=== PATIENT | male | born 1990 | race African-American/Black ===

== ENCOUNTER 2018-05-11 19:42 | Inpatient (IN) ==
[2018-05-11] MEDS ORDERED: Morphine Sulfate Inj 2 MG/ML Vial ONE ×2 (19:48→19:56)
[2018-05-11] MEDS ORDERED: Diphtheria/Tetanus/Pertussis Vaccine Inj 0.5 ML Syringe IM ONE (19:52)
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
[2018-05-11 20:14] LABS: Baso # (Auto) 0.1 th/mm3 (0.0-0.2); Baso % (Auto) 0.7 % (0.0-2.0); Eos # (Auto) 0.1 th/mm3 (0.0-0.4); Eos % (Auto) 0.9 % (0.0-4.0); Hematocrit 43.8 % (39.0-51.0); Hemoglobin 14.4 gm/dL (13.0-17.0); Lymph # (Auto) 4.1 th/mm3 (1.0-4.8); Lymph % (Auto) 50.6 % (9.0-44.0); Mean Corpuscular HGB Conc 32.9 % (32.0-36.0); Mean Corpuscular Hemoglobin 29.8 pg (27.0-34.0); Mean Corpuscular Volume 90.6 fL (80.0-100.0); Mean Platelet Volume 8.9 fL (7.0-11.0); Mono # (Auto) 0.5 th/mm3 (0.0-0.9); Mono % (Auto) 5.8 % (0.0-8.0); Neut # (Auto) 3.4 th/mm3 (1.8-7.7); Platelet Count 263 th/mm3 (150-450); Red Blood Count 4.83 mil/mm3 (4.50-5.90); Red Cell Distribution Width 13.4 % (11.6-17.2); White Blood Count 8.2 th/mm3 (4.0-11.0)
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
[2018-05-11] MEDS ORDERED: fentaNYL Citrate Inj 100 MCG/2 ML Ampul IV.PUSH ONE (20:37)
[2018-05-11] MEDS ORDERED: Etomidate Inj 40 MG/20 ML Vial IV.PUSH ONE (20:46)
[2018-05-11] MEDS ORDERED: Bisacodyl 10 MG Supp RECTAL PRN (21:19)
[2018-05-11] MEDS ORDERED: Post-op Orders (for Pharmacy) OTHER ONE (21:19)
[2018-05-11] MEDS ORDERED: Naloxone Inj 0.4 MG/ML Vial IV.PUSH PRN (21:19)
[2018-05-11] MEDS ORDERED: Morphine Inj 4 MG/ML Vial IV.PUSH PRN (21:19)
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
[2018-05-11] MEDS: Sod Chloride 0.9% Inj 1,000 ML IV.CONT SCH (23:44)
[2018-05-12] MEDS: Morphine Inj 4 MG/ML Vial IV.PUSH PRN ×7 (00:11→21:34)
[2018-05-12 05:04] LABS: Baso % (Auto) 0.1 % (0.0-2.0); Hematocrit 41.4 % (39.0-51.0); Hemoglobin 13.5 gm/dL (13.0-17.0); Lymph # (Auto) 0.6 th/mm3 (1.0-4.8); Lymph % (Auto) 5.5 % (9.0-44.0); Mean Corpuscular HGB Conc 32.5 % (32.0-36.0); Mean Corpuscular Hemoglobin 29.8 pg (27.0-34.0); Mean Corpuscular Volume 91.9 fL (80.0-100.0); Mean Platelet Volume 8.6 fL (7.0-11.0); Mono # (Auto) 0.6 th/mm3 (0.0-0.9); Mono % (Auto) 5.3 % (0.0-8.0); Neut # (Auto) 10.5 th/mm3 (1.8-7.7); Neut % (Auto) 89.1 % (16.0-70.0); Platelet Count 196 th/mm3 (150-450); Red Blood Count 4.51 mil/mm3 (4.50-5.90); Red Cell Distribution Width 13.5 % (11.6-17.2); White Blood Count 11.8 th/mm3 (4.0-11.0)
[2018-05-12 05:26] LABS: Calcium 8.8 mg/dL (8.5-10.1); Carbon Dioxide 23.8 meq/L (21.0-32.0); Potassium 4.1 meq/L (3.5-5.1)
[2018-05-12] MEDS: Sod Chloride 0.9% Inj 1,000 ML IV.CONT SCH ×2 (08:56→17:30)
[2018-05-12] MEDS: Senna/Docusate Sodium 8.6/50 MG Tablet PO SCH ×2 (08:56→20:10)
[2018-05-12] MEDS: Famotidine 20 MG Tablet PO SCH ×2 (08:57→20:09)
[2018-05-12] MEDS: Lidocaine 5% Patch T-DERMAL SCH (08:58)
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
[2018-05-12] MEDS ORDERED: Diatrizoate Meglum/Diatrizoate Sod Liq 9 ML UDC PO PRN (13:08)
[2018-05-12 16:10] LABS: Hemoglobin 13.4 gm/dL (13.0-17.0)
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
[2018-05-12] MEDS ORDERED: Sodium Chlor 0.9% Inj 500 ML IV.SIG SCH (23:45)
[2018-05-12] MEDS ORDERED: Chlorhexidine Gluconate 2% 1 Pack (2 Cloths) TOPICAL SCH (23:45)
[2018-05-13] MEDS ORDERED: Bupivacaine Liposomal PF 1.3% Inj 20 ML Vial ONE (02:09)
[2018-05-13] MEDS ORDERED: Bupivacaine PF 0.5% Inj 30 ML Vial ONE (02:09)
[2018-05-13] MEDS ORDERED: Naloxone Inj 0.4 MG/ML Vial IV.PUSH PRN (02:40)
[2018-05-13] MEDS ORDERED: fentaNYL Citrate Inj 100 MCG/2 ML Ampul ONE (02:48)
[2018-05-13] MEDS ORDERED: Morphine Inj 4 MG/ML Vial ONE (02:48)
[2018-05-13] MEDS ORDERED: Morphine Inj 30 MG/30 ML PCA.VIAL PCA ONE (03:09)
[2018-05-13] MEDS: Morphine Inj 30 MG/30 ML PCA.VIAL PCA PRN ×3 (03:38→20:08)
[2018-05-13] MEDS: Pantoprazole Inj 40 MG Vial IV.PUSH SCH (03:41)
[2018-05-13] MEDS: Piperacil/Tazo 3.375 GM Premix 50 ML IV.SIG SCH ×4 (03:42→20:11)
[2018-05-13 03:52] LABS: Baso % (Auto) 0.1 % (0.0-2.0); Eos % (Auto) 0.2 % (0.0-4.0); Hematocrit 39.4 % (39.0-51.0); Hemoglobin 13.2 gm/dL (13.0-17.0); Lymph # (Auto) 0.7 th/mm3 (1.0-4.8); Lymph % (Auto) 6.9 % (9.0-44.0); Mean Corpuscular HGB Conc 33.4 % (32.0-36.0); Mean Corpuscular Hemoglobin 30.8 pg (27.0-34.0); Mean Platelet Volume 8.8 fL (7.0-11.0); Mono # (Auto) 0.6 th/mm3 (0.0-0.9); Mono % (Auto) 5.4 % (0.0-8.0); Neut # (Auto) 9.3 th/mm3 (1.8-7.7); Neut % (Auto) 87.4 % (16.0-70.0); Platelet Count 171 th/mm3 (150-450); Red Blood Count 4.28 mil/mm3 (4.50-5.90); Red Cell Distribution Width 13.6 % (11.6-17.2); White Blood Count 10.6 th/mm3 (4.0-11.0)
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
[2018-05-13 04:19] LABS: Alanine Aminotransferase 232 U/L (12-78); Albumin 3.1 g/dL (3.4-5.0); Alkaline Phosphatase 68 U/L (45-117); Anion Gap 7 meq/L (5-15); Aspartate Aminotransferase 147 U/L (15-37); Blood Urea Nitrogen 12 mg/dL (7-18); Calcium 7.9 mg/dL (8.5-10.1); Chloride 105 meq/L (98-107); Glomerular Filtration Rate 74 mL/min (>89); Glucose,Random 105 mg/dL (74-106); Potassium 4.2 meq/L (3.5-5.1); Sodium 139 meq/L (136-145)
[2018-05-13] MEDS: Lidocaine 5% Patch T-DERMAL SCH (10:03)
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
[2018-05-13] MEDS ORDERED: Phenylephrine/NS 1000 MCG/10ML Syringe IV.PUSH ONE (12:00)
[2018-05-13] MEDS ORDERED: Lidocaine PF 1% Inj 5 ML Syringe INFILTRATN ONE (12:00)
[2018-05-13] MEDS ORDERED: Succinylcholine Inj 100 MG/5 ML Syringe IV.PUSH ONE (12:00)
[2018-05-13] MEDS: Enoxaparin Inj 40 MG/0.4 ML Syringe SQ SCH (12:59)
[2018-05-14] MEDS: Morphine Inj 30 MG/30 ML PCA.VIAL PCA PRN ×3 (02:34→16:40)
[2018-05-14] MEDS: Piperacil/Tazo 3.375 GM Premix 50 ML IV.SIG SCH ×4 (02:37→20:25)
[2018-05-14] MEDS: Pantoprazole Inj 40 MG Vial IV.PUSH SCH (02:37)
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
[2018-05-14] MEDS: Lidocaine 5% Patch T-DERMAL SCH (09:34)
[2018-05-14] MEDS: Enoxaparin Inj 40 MG/0.4 ML Syringe SQ SCH (09:34)
[2018-05-15] MEDS: Piperacil/Tazo 3.375 GM Premix 50 ML IV.SIG SCH ×4 (02:49→20:30)
[2018-05-15] MEDS: Pantoprazole Inj 40 MG Vial IV.PUSH SCH (02:49)
[2018-05-15] MEDS: Morphine Inj 30 MG/30 ML PCA.VIAL PCA PRN ×2 (02:58→13:10)
[2018-05-15 04:24] LABS: Baso % (Auto) 0.4 % (0.0-2.0); Eos # (Auto) 0.2 th/mm3 (0.0-0.4); Eos % (Auto) 2.1 % (0.0-4.0); Hematocrit 32.7 % (39.0-51.0); Hemoglobin 11.2 gm/dL (13.0-17.0); Lymph # (Auto) 1.7 th/mm3 (1.0-4.8); Lymph % (Auto) 19.6 % (9.0-44.0); Mean Corpuscular HGB Conc 34.3 % (32.0-36.0); Mean Corpuscular Hemoglobin 30.8 pg (27.0-34.0); Mean Corpuscular Volume 89.7 fL (80.0-100.0); Mean Platelet Volume 8.5 fL (7.0-11.0); Mono # (Auto) 0.6 th/mm3 (0.0-0.9); Neut % (Auto) 70.9 % (16.0-70.0); Platelet Count 196 th/mm3 (150-450); Red Blood Count 3.65 mil/mm3 (4.50-5.90); Red Cell Distribution Width 13.2 % (11.6-17.2); White Blood Count 8.5 th/mm3 (4.0-11.0)
[2018-05-15 04:47] LABS: Alanine Aminotransferase 115 U/L (12-78); Albumin 2.8 g/dL (3.4-5.0); Anion Gap 7 meq/L (5-15); Aspartate Aminotransferase 69 U/L (15-37); Blood Urea Nitrogen 17 mg/dL (7-18); Calcium 8.9 mg/dL (8.5-10.1); Carbon Dioxide 26.7 meq/L (21.0-32.0); Chloride 105 meq/L (98-107); Glomerular Filtration Rate 80 mL/min (>89); Glucose,Random 79 mg/dL (74-106); Potassium 3.7 meq/L (3.5-5.1); Sodium 139 meq/L (136-145)
[2018-05-15 04:52] LABS: Alkaline Phosphatase 63 U/L (45-117); Total Protein 6.8 g/dL (6.4-8.2)
[2018-05-15] MEDS: Enoxaparin Inj 40 MG/0.4 ML Syringe SQ SCH (09:15)
[2018-05-15] MEDS: Lidocaine 5% Patch T-DERMAL SCH (09:15)
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
--- NOTE | 2018-05-15 18:12 | P.PNWCN ---
Wound Care Nurse Consult Description: Patient seen for Colostomy teaching for new transverse Colostomy Communicated with: RN Mica, Patient's spouse and patient Incision - Patient Status Premedicated for Pain Prior to Dressing Change: No (DRESSING CHANGE) Bowel Diversion Stoma - Bowel Stoma Left Lower Abdomen Stoma Appearance: Beefy Red, Round Loop Supporting Karson: No Collection Device: Two-piece Drainage Description: Liquid, Blood-Tinged Gabrielle-Stomal Skin Appearance: Intact Gabrielle-Stomal Surrounding Tissue Sensation Description: No Symptoms - Additional Information Additional Information: Patient seen on for new transverse colostomy teaching. Patient was transferred with minimal assistance to bed from chair. Patient assisted with abdominal binder removal to reveal dry intact dressing to medial abdomen. Two piece colostomy appliance is noted on L lower abdomen that is dry and intact. Red, round stoma is visible through transparent pouch. Effluent in pouch presents with minimal sero-sanguinous liquid. Education kit delivered to patient. Instructed patient and patient's spouse on stoma appearance,to empty pouch when 1/3 to 1/2 full and to change colostomy appliance every 5 to 7 days. Patient instructed to read education material provided in education kit.Patient gave consent for Me + program for starter kit. Assisted patient with abdominal binder and then assisted patient with transfer from bed to chair.
[2018-05-15] MEDS: Senna/Docusate Sodium 8.6/50 MG Tablet PO SCH (20:30)
[2018-05-16] MEDS: Morphine Inj 30 MG/30 ML PCA.VIAL PCA PRN (00:38)
[2018-05-16] MEDS: Piperacil/Tazo 3.375 GM Premix 50 ML IV.SIG SCH ×4 (02:57→20:10)
[2018-05-16] MEDS: Pantoprazole Inj 40 MG Vial IV.PUSH SCH (02:57)
--- NOTE | 2018-05-16 07:39 | P.DCO ---
- Physical Therapy Order: Evaluate and treat, Improve ambulation, Strength and gait training - Home Health Nursing Order: Medical education, Signs/symptoms of disease process, Medication education-adverse effect, Wound care and dressing changes (Colostomy teaching and care), Nursing assessment with vital signs - Certification I have seen patient Russ Tang II on 05/16/18. My clinical findings support the need for the requested home health care services because: Limited mobility due to disease progression, Deconditioned with increased weakness, Limited ability to care for self, High risk of falls I certify that my clinical findings support that this patient is homebound because: Post-op weakness, Unsteady gait/balance, Unsafe to leave home unassisted, Unable to use public transportation
[2018-05-16] MEDS: Senna/Docusate Sodium 8.6/50 MG Tablet PO SCH ×2 (08:43→20:09)
[2018-05-16] MEDS: Lidocaine 5% Patch T-DERMAL SCH (08:43)
[2018-05-16] MEDS: Enoxaparin Inj 40 MG/0.4 ML Syringe SQ SCH (08:43)
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
--- NOTE | 2018-05-16 12:29 | P.PNWCN ---
Wound Care Nurse Consult Description: Patient seen today on Communicated with: RN Recommendation: Monitor stoma for color, moisture, and output Additional information: Patient seen on for ostomy assessment Bowel Diversion Stoma - Bowel Stoma Left Lower Abdomen Stoma Appearance: Protruding, Round Collection Device: Two-piece Drainage Description: Soft, Liquid, Brown Wafer Size: 1 3/4 Moldable 45mm Gabrielle-Stomal Skin Appearance: Intact
--- NOTE | 2018-05-16 12:50 | P.DIET ---
Nutritional Evaluation Screening comments: Pt has been npo x 3 days. He is s/p exp lap and colon resection (05/13). Consult RD if neeed.
[2018-05-16] MEDS: Morphine Inj 4 MG/ML Vial IV.PUSH PRN ×3 (13:53→21:45)
[2018-05-17] MEDS: Pantoprazole Inj 40 MG Vial IV.PUSH SCH (03:05)
[2018-05-17] MEDS: Piperacil/Tazo 3.375 GM Premix 50 ML IV.SIG SCH ×4 (03:05→20:30)
[2018-05-17] MEDS: Morphine Inj 4 MG/ML Vial IV.PUSH PRN ×3 (03:10→23:17)
[2018-05-17] MEDS: Senna/Docusate Sodium 8.6/50 MG Tablet PO SCH ×2 (09:46→20:30)
[2018-05-17] MEDS: Enoxaparin Inj 40 MG/0.4 ML Syringe SQ SCH (09:47)
[2018-05-17] MEDS: Lidocaine 5% Patch T-DERMAL SCH (09:47)
--- NOTE | 2018-05-17 11:03 | P.PNWCN ---
Wound Care Nurse Consult Description: Patient seen today on for continued teaching of new transverse Colostomy. Communicated with: RN Tish hannaford, and patient Recommendation: Monitor stoma for color, moisture, and output Incision - Incision Midline Abdomen Incision Assessment: Ongoing Incision Dressing Status: Dry & Intact Primary Dressing: bordered gauze Support Dressing: Abdominal Binder Bowel Diversion Stoma - Bowel Stoma Left Lower Abdomen Stoma Diameter: 29 (~29 mm in diameter) Stoma Appearance: Beefy Red Loop Supporting Karson: No Collection Device: Two-piece Drainage Description: Liquid, Brown Wafer Size: 1 3/4 Moldable 45mm Gabrielle-Stomal Skin Appearance: Intact Gabrielle-Stomal Surrounding Tissue Sensation Description: No Symptoms - Additional Information Additional Information: Patient seen on for new transverse colostomy teaching. Patient is sitting in chair for assessment stoma and colostomy appliance. Abdomen is slightly distended, soft, with hypoactive bowel sounds. Patient reports, Doctor changed 1 3/4 two piece appliance yesterday. Appliance is dry and intact. Stoma is visible through transparent pouch and presents red in color and round. Stoma measures ~29 mm or 1 1/8 inches in diameter. Patient complains of feeling bloated, with "lots of gas". Patient was instructed on emptying pouch correctly and properly closing pouch. Also, patient was instructed on how to change two -piece colostomy appliance using moldable technology. Patient return demonstrated application of stoma appliance on practice stoma and emptying and closing pouch.Also reinforced instruction on releasing gas from appliance.Will follow up with patient tomorrow.
--- NOTE | 2018-05-17 11:28 | P.DIET ---
Nutritional Evaluation Type of nutrition evaluation: follow-up Screening comments: Pt has been NPO x 4 days. Pt is s/p exp lap and colon resection (05/12). Please Consult RD if neeed.
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
[2018-05-18] MEDS: Pantoprazole Inj 40 MG Vial IV.PUSH SCH (02:38)
[2018-05-18] MEDS: Morphine Inj 4 MG/ML Vial IV.PUSH PRN ×2 (08:30→21:16)
[2018-05-18] MEDS: Enoxaparin Inj 40 MG/0.4 ML Syringe SQ SCH (08:32)
[2018-05-18] MEDS: Senna/Docusate Sodium 8.6/50 MG Tablet PO SCH ×2 (08:36→20:14)
[2018-05-18] MEDS: Lidocaine 5% Patch T-DERMAL SCH (08:36)
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
--- NOTE | 2018-05-18 17:55 | P.PNWCN ---
Wound Care Nurse Consult Description: Patient seen today on for continued teaching of new transverse Colostomy. Recommendation: Monitor stoma for color, moisture, and output Bowel Diversion Stoma - Bowel Stoma Left Lower Abdomen Stoma Diameter: 29 (~29 mm in diameter) Stoma Appearance: Beefy Red, Flush to Skin, Round Loop Supporting Karson: No Collection Device: Two-piece Drainage Description: Liquid, Brown Wafer Size: 1 3/4 Moldable 45mm Stoma Care: Pouch and Wafer Changed, Skin Care Gabrielle-Stomal Skin Appearance: Intact Gabrielle-Stomal Surrounding Tissue Sensation Description: No Symptoms - Additional Information Additional Information: Patient seen on for new transverse colostomy teaching. Patient is laying in bed with colostomy appliance in place. Abdomen is slightly distended, and soft. Doctor changed ostomy appliance on 05/16/2018. Appliance is dry and intact.Patient reports he changed just the pouch and not wafer earlier today after emptying pouch. Stoma is visible through transparent pouch and presents red in color and round. Stoma measures ~29 mm or 1 1/8 inches in diameter. Patient was instructed on emptying pouch correctly and properly closing pouch using clip closure. Also, patient was instructed on how to change one piece colostomy appliance using cut to fit. Script for ostomy supplies in chart. Will follow up with patient tomorrow at 1500 for continued colostomy education.
[2018-05-19] MEDS: Pantoprazole Inj 40 MG Vial IV.PUSH SCH (02:46)
[2018-05-19] MEDS: Lidocaine 5% Patch T-DERMAL SCH (08:33)
[2018-05-19] MEDS: Enoxaparin Inj 40 MG/0.4 ML Syringe SQ SCH (08:33)
[2018-05-19] MEDS: Senna/Docusate Sodium 8.6/50 MG Tablet PO SCH ×2 (08:34→21:16)
[2018-05-19 09:48] LABS: Baso % (Auto) 0.3 % (0.0-2.0); Eos # (Auto) 0.2 th/mm3 (0.0-0.4); Eos % (Auto) 2.7 % (0.0-4.0); Hematocrit 34.5 % (39.0-51.0); Hemoglobin 11.5 gm/dL (13.0-17.0); Lymph # (Auto) 1.9 th/mm3 (1.0-4.8); Lymph % (Auto) 27.9 % (9.0-44.0); Mean Corpuscular HGB Conc 33.3 % (32.0-36.0); Mean Platelet Volume 8.3 fL (7.0-11.0); Mono # (Auto) 0.6 th/mm3 (0.0-0.9); Mono % (Auto) 8.7 % (0.0-8.0); Neut % (Auto) 60.4 % (16.0-70.0); Platelet Count 286 th/mm3 (150-450); Red Blood Count 3.83 mil/mm3 (4.50-5.90); Red Cell Distribution Width 12.6 % (11.6-17.2); White Blood Count 6.7 th/mm3 (4.0-11.0)
[2018-05-19 10:06] LABS: Albumin 2.6 g/dL (3.4-5.0); Anion Gap 9 meq/L (5-15); Aspartate Aminotransferase 37 U/L (15-37); Blood Urea Nitrogen 8 mg/dL (7-18); Calcium 8.9 mg/dL (8.5-10.1); Carbon Dioxide 25.5 meq/L (21.0-32.0); Chloride 103 meq/L (98-107); Glomerular Filtration Rate Greater Than 89 mL/min (>89); Glucose,Random 91 mg/dL (74-106); Potassium 3.9 meq/L (3.5-5.1); Sodium 137 meq/L (136-145)
[2018-05-19 10:07] LABS: Alanine Aminotransferase 54 U/L (12-78)
[2018-05-19 10:09] LABS: Alkaline Phosphatase 78 U/L (45-117); Total Protein 6.5 g/dL (6.4-8.2)
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
--- NOTE | 2018-05-19 19:22 | P.PNWCN ---
Wound Care Nurse Consult Description: Patient seen today on for continued teaching of new transverse Colostomy. Communicated with: FELICE Lua Recommendation: Monitor stoma for color, moisture, and output Incision - Patient Status Premedicated for Pain Prior to Dressing Change: No - Incision Midline Abdomen Incision Assessment: Ongoing Incision Type: Incision Incision Description: Approximated, Flushing Surrounding Tissue Temperature: Warm Drainage Description: Serosanguinous Drainage Amount: Scant Drainage Odor: No Odor Incision Dressing Status: Changed Incision Cleaning Solution: Alcohol Primary Dressing: borded gauze Support Dressing: Abdominal Binder Bowel Diversion Stoma - Bowel Stoma Left Lower Abdomen Stoma Appearance: Beefy Red, Oval Loop Supporting Karson: No Collection Device: Two-piece Drainage Description: Liquid, Brown Wafer Size: 1 3/4 Moldable 45mm Stoma Care: Pouch and Wafer Changed, Skin Care Gabrielle-Stomal Skin Appearance: Intact Gabrielle-Stomal Surrounding Tissue Sensation Description: No Symptoms - Additional Information Additional Information: Patient seen on for new transverse colostomy teaching. Patient is laying in bed with colostomy appliance in place. Abdomen is slightly distended, and soft. Doctor changed ostomy appliance on 05/16/2018. Stoma is visible through transparent pouch and presents red in color, round and slightly protruding Stoma measures ~29 mm or 1 1/8 inches in diameter. Patient able to return demonstrate today changing of two piece moldable appliance. Patient removed two piece colostomy appliance in place. to reveal entire stoma. Stoma presents as red, oval shaped and slightly protruding. Stoma measures 1 1/8 inches tall and 1 1/2 inches wide. Patient cleansed peristomal skin with water and washcloths. Skin barrier film was then applied to peristomal skin and allowed to dry. Patient then applied moldable 1 3/4 two piece appliance over stoma and held pressure for 60 seconds. Patient demonstrated closure of the pouch. 2 1/4 appliances will be sent home with patient due to the oval stoma with a width of 1 1/2 inches.
[2018-05-19] MEDS: Morphine Inj 4 MG/ML Vial IV.PUSH PRN (23:48)
[2018-05-20] MEDS: Pantoprazole Inj 40 MG Vial IV.PUSH SCH (03:46)
[2018-05-20] MEDS: Morphine Inj 4 MG/ML Vial IV.PUSH PRN (05:22)
[2018-05-20] MEDS: Enoxaparin Inj 40 MG/0.4 ML Syringe SQ SCH (08:25)
[2018-05-20] MEDS: Senna/Docusate Sodium 8.6/50 MG Tablet PO SCH (08:25)
[2018-05-20] MEDS: Lidocaine 5% Patch T-DERMAL SCH (08:26)
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
[2018-05-23 18:11] VITALS: BP 142/94; PULSE 92; TEMP 98; O2SAT 94
[2018-05-23 18:20] VITALS: RESP 17
== END 2018-05-20 13:10 | disposition home health service (06) ==
LOC: NEPI 19:42 → NEDA 20:20 → EDBD 20:20 → N07 21:47
PROVIDERS: ADMIT Surgery; ATTEND Surgery

== ENCOUNTER 2018-09-29 09:11 | Inpatient (IN) ==
[2018-09-29] MEDS ORDERED: Chlorhexidine Gluconate 2% 1 Pack (2 Cloths) TOPICAL ONE (10:00)
[2018-09-29] MEDS ORDERED: Sodium Chlor 0.9% Inj 500 ML IV.CONT ONE (10:00)
[2018-09-29] MEDS ORDERED: Metoprolol Tartrate 25 MG Tablet PO ONE (10:00)
[2018-09-29 10:28] LABS: Baso % (Auto) 0.5 % (0.0-2.0); Eos # (Auto) 0.1 th/mm3 (0.0-0.4); Eos % (Auto) 1.7 % (0.0-4.0); Hematocrit 41.8 % (39.0-51.0); Hemoglobin 14.1 gm/dL (13.0-17.0); Lymph # (Auto) 2.5 th/mm3 (1.0-4.8); Lymph % (Auto) 42.7 % (9.0-44.0); Mean Corpuscular HGB Conc 33.7 % (32.0-36.0); Mean Corpuscular Hemoglobin 31.2 pg (27.0-34.0); Mean Corpuscular Volume 92.5 fL (80.0-100.0); Mean Platelet Volume 9.3 fL (7.0-11.0); Mono # (Auto) 0.4 th/mm3 (0.0-0.9); Neut # (Auto) 2.9 th/mm3 (1.8-7.7); Neut % (Auto) 49.1 % (16.0-70.0); Platelet Count 153 th/mm3 (150-450); Red Blood Count 4.52 mil/mm3 (4.50-5.90); Red Cell Distribution Width 13.8 % (11.6-17.2); White Blood Count 5.9 th/mm3 (4.0-11.0)
--- NOTE | 2018-09-29 10:43 | ECG ---
Date Performed: 09/29/2018 Time Performed: 09:49:00 PTAGE: 27 years EKG: Sinus rhythm POSSIBLE LEFT ATRIAL ENLARGEMENT POSSIBLE RIGHT VENTRICULAR CONDUCTION DELAY NONSPECIFIC T-WAVE ABNO RMALITY BORDERLINE ECG NO PREVIOUS TRACING DOCTOR: Lester Malagon Interpretating Date/Time 09/29/2018 10:42:33
[2018-09-29 10:48] LABS: Anion Gap 8 meq/L (5-15); Blood Urea Nitrogen 10 mg/dL (7-18); Calcium 8.9 mg/dL (8.5-10.1); Chloride 109 meq/L (98-107); Glomerular Filtration Rate Greater Than 89 mL/min (>89); Glucose,Random 91 mg/dL (74-106); Potassium 3.9 meq/L (3.5-5.1); Sodium 142 meq/L (136-145)
[2018-09-29] MEDS ORDERED: METRONIDAZOLE 500 MG IV.SIG ONE (13:10)
[2018-09-29] MEDS ORDERED: ceFAZolin 2 GM Premix Inj 2 GM/50 ML PIGGYBACK IV.SIG ONE (14:50)
[2018-09-29] MEDS ORDERED: *Meperidine Inj 25 MG/ML Vial PERIprocedural Use ONLY ONE (15:16)
[2018-09-29] MEDS ORDERED: fentaNYL Citrate Inj 100 MCG/2 ML Ampul ONE ×2 (15:26→15:27)
[2018-09-29] MEDS ORDERED: Morphine Inj 4 MG/ML Vial ONE ×2 (15:28)
[2018-09-29] MEDS ORDERED: *Enalaprilat Inj 1.25 MG/ML Vial IV.PUSH ONE (15:33)
[2018-09-29] MEDS ORDERED: *morphine SULFATE 4 MG/ML PERIprocedure ONLY ONE (15:41)
[2018-09-29] MEDS ORDERED: *HYDROmorphone PF Inj 1 MG/ML Ampul PERIprocedural Use ONLY ONE ×2 (15:54→16:32)
[2018-09-29] MEDS ORDERED: hydrALAZINE HCl Inj 20 MG/ML Vial ONE (16:05)
[2018-09-29] MEDS ORDERED: HYDROmorphone PF Inj 0.5 MG/0.5 ML Syringe ONE ×2 (16:06→16:21)
[2018-09-29] MEDS ORDERED: Post-op Orders (for Pharmacy) OTHER ONE (16:19)
[2018-09-29] MEDS ORDERED: Bisacodyl 10 MG Supp RECTAL PRN (16:19)
[2018-09-29] MEDS ORDERED: Naloxone Inj 0.4 MG/ML Vial IV.PUSH PRN ×2 (16:19→16:23)
[2018-09-29] MEDS ORDERED: Labetalol HCl Inj 100 MG/20 ML Vial ONE (16:20)
[2018-09-29] MEDS: Sod Chloride 0.9% Inj 1,000 ML IV.CONT SCH (16:42)
[2018-09-29] MEDS: HYDROmorphone PCA Inj 6 MG/30 ML PCA.VIAL PCA PRN (16:42)
[2018-09-29] MEDS: Pantoprazole Inj 40 MG Vial IV.PUSH SCH (16:55)
[2018-09-29] MEDS ORDERED: ceFAZolin Inj 1,000 MG in Sodium Chlor 0.9% Inj 100 ML IV.SIG SCH (17:00)
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
[2018-09-29] MEDS ORDERED: hydrALAZINE HCl Inj 20 MG/ML Vial IV.PUSH ONE (17:45)
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
[2018-09-29] MEDS: ceFAZolin 1 GM Premix Inj 1 GM/50 ML PIGGYBACK IV.SIG SCH (20:11)
[2018-09-29] MEDS: Senna/Docusate Sodium 8.6/50 MG Tablet PO SCH (20:15)
[2018-09-30] MEDS: HYDROmorphone PCA Inj 6 MG/30 ML PCA.VIAL PCA PRN ×4 (01:11→20:52)
[2018-09-30] MEDS: Sod Chloride 0.9% Inj 1,000 ML IV.CONT SCH ×3 (04:46→22:30)
[2018-09-30] MEDS: ceFAZolin 1 GM Premix Inj 1 GM/50 ML PIGGYBACK IV.SIG SCH ×2 (04:46→13:00)
[2018-09-30 07:13] LABS: Baso % (Auto) 0.1 % (0.0-2.0); Hematocrit 40.2 % (39.0-51.0); Hemoglobin 13.3 gm/dL (13.0-17.0); Lymph # (Auto) 1.7 th/mm3 (1.0-4.8); Lymph % (Auto) 12.5 % (9.0-44.0); Mean Corpuscular Hemoglobin 30.1 pg (27.0-34.0); Mean Corpuscular Volume 91.2 fL (80.0-100.0); Mean Platelet Volume 8.4 fL (7.0-11.0); Mono # (Auto) 0.7 th/mm3 (0.0-0.9); Mono % (Auto) 5.3 % (0.0-8.0); Neut # (Auto) 11.2 th/mm3 (1.8-7.7); Neut % (Auto) 82.1 % (16.0-70.0); Platelet Count 222 th/mm3 (150-450); Red Blood Count 4.41 mil/mm3 (4.50-5.90); Red Cell Distribution Width 13.5 % (11.6-17.2); White Blood Count 13.6 th/mm3 (4.0-11.0)
[2018-09-30 07:39] LABS: Anion Gap 8 meq/L (5-15); Blood Urea Nitrogen 11 mg/dL (7-18); Calcium 8.3 mg/dL (8.5-10.1); Carbon Dioxide 25.8 meq/L (21.0-32.0); Chloride 104 meq/L (98-107); Glomerular Filtration Rate Greater Than 89 mL/min (>89); Glucose,Random 106 mg/dL (74-106); Potassium 4.2 meq/L (3.5-5.1); Sodium 138 meq/L (136-145)
--- NOTE | 2018-09-30 08:03 | P.PN ---
Physical Exam Vital signs: Vital Signs 09/29/18 09:50 09/29/18 15:15 09/29/18 15:30 Temperature 98.7 F 96.3 F L Pulse Rate 69 83 81 Respiratory Rate 18 20 18 Blood Pressure 122/70 225/122 H 179/94 H Pulse Oximetry 100 98 100 09/29/18 15:45 09/29/18 15:55 09/29/18 16:00 Temperature Pulse Rate 76 75 73 Respiratory Rate 16 20 17 Blood Pressure 182/97 H 197/93 H 190/98 H Pulse Oximetry 100 100 100 09/29/18 16:15 09/29/18 16:30 09/29/18 16:45 Temperature Pulse Rate 85 79 78 Respiratory Rate 18 18 17 Blood Pressure 183/88 H 169/86 H 155/82 H Pulse Oximetry 100 100 100 09/29/18 17:00 09/29/18 17:15 09/29/18 17:56 Temperature 98 F 98.2 F Pulse Rate 85 86 70 Respiratory Rate 17 17 16 Blood Pressure 163/86 H 169/89 H 170/81 H Pulse Oximetry 100 100 98 09/29/18 18:30 09/29/18 20:31 09/30/18 00:24 Temperature 98.1 F 97.6 F Pulse Rate 64 72 Respiratory Rate 18 17 18 Blood Pressure 156/83 H 149/85 H Pulse Oximetry 96 98 09/30/18 04:06 09/30/18 04:35 Temperature 97.5 F L Pulse Rate 65 Respiratory Rate 16 17 Blood Pressure 166/56 H Pulse Oximetry 99 Intake & Output 09/29/18 09/30/18 09/30/18 18:59 06:59 18:59 Intake Total 2320 / 2320 1380 / 1380 Output Total 755 / 755 1150 / 1150 Balance 1565 / 1565 230 / 230 Weight 112.5 kg 115.1 kg Intake: IV 1320 / 1320 1080 / 1080 LR 1000 mL Inj 1,000 ML @ 30 1000 / 1000 mls/hr IV.CONT .Q24H [facility] Rx#: [id number] NS Inj 1,000 ML @ 100 mls/hr IV 70 / 70 930 / 930 .CONT .Q10H [facility] Rx#:[id number] Ancef 1 GM Premix Inj 1 gm In 50 / 50 50 ml @ 100 mls/hr IV.SIG Q8H [facility] Rx#:[id number] Ancef 2 GM Premix Inj 2 gm In 50 / 50 50 ml @ 100 mls/hr IV.SIG ONCE [facility] Rx#:[id number] Flagyl 500 MG Inj 100 ML @ 100 200 / 200 100 / 100 mls/hr IV.SIG Q8H [facility] Rx#: [id number] Oral 0 / 0 300 / 300 Anesthesia Amount 1000 / 1000 Output: Urine 1100 / 1100 Stool 0 / 0 Estimated Blood Loss 50 / 50 Urine Amount (Catheter) 575 / 575 Indwelling Urethral Catheter 575 / 575 Wound Drainage 130 / 130 50 / 50 # 1 Right Abdomen JEFF Drain 130 / 130 50 / 50 Other: Weight On Admission 112.5 kg - Urinary Catheter Management Indwelling Urethral Catheter Cath placed during this visit: yes Reason for continuing: Other continuation reason Insertion date: 09/29/18 Results - Labs CBC & Chem 7: 09/30/18 06:33 09/30/18 06:33 Laboratory Results - last 24 hr 09/29/18 09/29/18 09/29/18 10:05 10:05 10:05 WBC 5.9 RBC 4.52 Hgb 14.1 Hct 41.8 MCV 92.5 MCH 31.2 MCHC 33.7 RDW 13.8 Plt Count 153 MPV 9.3 Neut % (Auto) 49.1 Lymph % (Auto) 42.7 [place] % (Auto) 6.0 Eos % (Auto) 1.7 Baso % (Auto) 0.5 Neut # (Auto) 2.9 Lymph # (Auto) 2.5 [place] # (Auto) 0.4 Eos # (Auto) 0.1 Baso # (Auto) 0.0 WBC Differential . Differential Comment Auto diff final Sodium 142 Potassium 3.9 Chloride 109 H Carbon Dioxide 25.0 Anion Gap 8 BUN 10 Creatinine 1.14 Estimated GFR Greater than 89 Random Glucose 91 Calcium 8.9 Blood Type O Positive Antibody Screen Negative MTS Gel Crossmatch See Detail 09/30/18 09/30/18 06:33 06:33 WBC 13.6 H D RBC 4.41 L Hgb 13.3 Hct 40.2 MCV 91.2 MCH 30.1 MCHC 33.0 RDW 13.5 Plt Count 222 D MPV 8.4 Neut % (Auto) 82.1 H Lymph % (Auto) 12.5 [place] % (Auto) 5.3 Eos % (Auto) 0.0 Baso % (Auto) 0.1 Neut # (Auto) 11.2 H Lymph # (Auto) 1.7 [place] # (Auto) 0.7 Eos # (Auto) 0.0 Baso # (Auto) 0.0 WBC Differential . Differential Comment Auto diff final Sodium 138 Potassium 4.2 Chloride 104 Carbon Dioxide 25.8 Anion Gap 8 BUN 11 Creatinine 1.11 Estimated GFR Greater than 89 Random Glucose 106 Calcium 8.3 L Blood Type Antibody Screen MTS Gel Crossmatch
[2018-09-30] MEDS: Senna/Docusate Sodium 8.6/50 MG Tablet PO SCH ×2 (11:58→20:57)
[2018-09-30] MEDS: Ketorolac Inj 30 MG/ML (IVP) Vial IV.PUSH SCH ×2 (16:26→20:57)
[2018-09-30] MEDS: Pantoprazole Inj 40 MG Vial IV.PUSH SCH (16:29)
[2018-09-30] MEDS: Enoxaparin Inj 40 MG/0.4 ML Syringe SQ SCH (16:30)
[2018-10-01] MEDS: Ketorolac Inj 30 MG/ML (IVP) Vial IV.PUSH SCH ×4 (03:27→20:36)
[2018-10-01] MEDS: Sod Chloride 0.9% Inj 1,000 ML IV.CONT SCH ×2 (05:14→09:58)
[2018-10-01 07:27] LABS: Hemoglobin 12.9 gm/dL (13.0-17.0); Mean Corpuscular HGB Conc 33.9 % (32.0-36.0); Mean Corpuscular Hemoglobin 31.3 pg (27.0-34.0); Mean Corpuscular Volume 92.4 fL (80.0-100.0); Mean Platelet Volume 8.8 fL (7.0-11.0); Platelet Count 184 th/mm3 (150-450); Red Blood Count 4.12 mil/mm3 (4.50-5.90); Red Cell Distribution Width 13.3 % (11.6-17.2); White Blood Count 7.3 th/mm3 (4.0-11.0)
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
[2018-10-01] MEDS ORDERED: Morphine Sulfate Inj 2 MG/ML Vial IV.PUSH PRN (09:06)
[2018-10-01] MEDS: Senna/Docusate Sodium 8.6/50 MG Tablet PO SCH ×2 (09:55→20:37)
[2018-10-01] MEDS: Enoxaparin Inj 40 MG/0.4 ML Syringe SQ SCH (16:28)
[2018-10-01] MEDS: Pantoprazole Inj 40 MG Vial IV.PUSH SCH (17:00)
[2018-10-02] MEDS: Ketorolac Inj 30 MG/ML (IVP) Vial IV.PUSH SCH ×3 (03:16→18:03)
[2018-10-02 04:35] LABS: Baso % (Auto) 0.6 % (0.0-2.0); Eos # (Auto) 0.2 th/mm3 (0.0-0.4); Eos % (Auto) 3.1 % (0.0-4.0); Hematocrit 37.4 % (39.0-51.0); Hemoglobin 12.6 gm/dL (13.0-17.0); Lymph # (Auto) 2.7 th/mm3 (1.0-4.8); Lymph % (Auto) 37.8 % (9.0-44.0); Mean Corpuscular HGB Conc 33.8 % (32.0-36.0); Mean Corpuscular Hemoglobin 30.8 pg (27.0-34.0); Mean Corpuscular Volume 91.3 fL (80.0-100.0); Mean Platelet Volume 8.7 fL (7.0-11.0); Mono # (Auto) 0.6 th/mm3 (0.0-0.9); Neut # (Auto) 3.5 th/mm3 (1.8-7.7); Neut % (Auto) 49.5 % (16.0-70.0); Platelet Count 194 th/mm3 (150-450); Red Cell Distribution Width 13.4 % (11.6-17.2)
[2018-10-02 05:02] LABS: Anion Gap 7 meq/L (5-15); Blood Urea Nitrogen 11 mg/dL (7-18); Calcium 8.7 mg/dL (8.5-10.1); Chloride 104 meq/L (98-107); Glomerular Filtration Rate Greater Than 89 mL/min (>89); Glucose,Random 93 mg/dL (74-106); Sodium 138 meq/L (136-145)
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
[2018-10-02] MEDS: Senna/Docusate Sodium 8.6/50 MG Tablet PO SCH ×2 (09:41→21:46)
[2018-10-02] MEDS: Enoxaparin Inj 40 MG/0.4 ML Syringe SQ SCH (14:13)
[2018-10-02] MEDS: oxyCODONE/Acetaminophen 10/325 Tablet PO PRN ×3 (14:14→21:46)
[2018-10-02] MEDS: Pantoprazole Inj 40 MG Vial IV.PUSH SCH (17:39)
[2018-10-03] MEDS: Ketorolac Inj 30 MG/ML (IVP) Vial IV.PUSH SCH ×4 (00:55→18:43)
[2018-10-03] MEDS: oxyCODONE/Acetaminophen 10/325 Tablet PO PRN ×3 (06:41→22:48)
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
[2018-10-03] MEDS: Senna/Docusate Sodium 8.6/50 MG Tablet PO SCH ×2 (08:52→22:49)
[2018-10-03] MEDS: amLODIPine 5 MG Tablet PO SCH (08:52)
[2018-10-03] MEDS: Enoxaparin Inj 40 MG/0.4 ML Syringe SQ SCH (14:42)
[2018-10-03] MEDS: Pantoprazole Inj 40 MG Vial IV.PUSH SCH (18:43)
[2018-10-04] MEDS: Ketorolac Inj 30 MG/ML (IVP) Vial IV.PUSH SCH ×3 (01:59→13:32)
[2018-10-04] MEDS: oxyCODONE/Acetaminophen 10/325 Tablet PO PRN ×2 (06:32→10:18)
[2018-10-04] MEDS: Senna/Docusate Sodium 8.6/50 MG Tablet PO SCH (09:16)
[2018-10-04] MEDS: amLODIPine 5 MG Tablet PO SCH (09:16)
[2018-10-04 11:58] VITALS: BP 166/89; PULSE 76; RESP 17; TEMP 97.8; O2SAT 96
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
== END 2018-10-04 14:24 | disposition home or self-care (01) ==
LOC: HSDC 09:11 → EDSTATUS 11:00 → HSDI 16:27 → N06 17:53
PROVIDERS: ADMIT Surgery; ATTEND Surgery